=== PATIENT | male | born 1980 | race American Indian/Alaskan Native ===

== ENCOUNTER 2017-10-03 03:15 | Emergency (ER) | payer SELFPAY ==
[2017-10-03 04:52] LABS: Hematocrit 44.2 % (35.5-45.6); Hemoglobin 14.3 gm/dl (11.8-15.2); Mean Corpuscular HGB Conc 32 % (32-34); Mean Corpuscular Hemoglobin 29 pg (28-32); Mean Corpuscular Volume 89 fl (84-94); Platelet Count 246 K/mm3 (140-440); Red Blood Count 4.97 M/mm3 (3.65-5.03); Red Cell Distribution Width 13.7 % (13.2-15.2)
[2017-10-03 05:03] LABS: BUN/Creatinine Ratio 11; Blood Urea Nitrogen 8 mg/dL (9-20); Calcium 9.1 mg/dL (8.4-10.2); Hemolysis Index 10
[2017-10-03 06:57] LABS: Bacteria,Urine 1+ /HPF (Negative); Bilirubin,Urine NEG (Negative); Blood,Urine NEG (Negative); Color,Urine Yellow (Yellow); Mucus,Urine 1+ /HPF; Protein,Urine <15 mg/dL mg/dL (Negative)
[2017-10-03 07:57] LABS: Basophils % (Manual) 0 % (0.0-1.8); Eosinophils % (Manual) 0 % (0.0-4.3); Total Cells Counted 100
[2017-10-03 07:58] LABS: Anisocytosis Few; Hypochromasia Few
[2017-10-03] MEDS ORDERED: ZITHROMAX PO ONE (08:27)
[2017-10-03] MEDS ORDERED: ROCEPHIN IM ONE (08:27)
[2017-10-03] MEDS ORDERED: XYLOCAINE 1% MPF 5 mL INFILTRATI ONE (08:27)
--- NOTE | 2017-10-03 08:27 | Emergency Department Report ---
HPI - General Chief Complaint: Back Pain/Injury Time Seen by Provider: 10/03/17 07:45 - HPI HPI: This is a 36-year-old male with no problem with a history of persistent ED complaining of left-sided flank pain intermittently for the past one week. Patient states he has a history of gastritis and thinks this might be what's going on. Patient denies fevers chills, nausea, vomitting or diarrhea/abdominal pain/dysuria/penile d/c or pain. He denies chest pain or shortness of breath or any of the symptoms. ED Past Medical Hx - Past Medical History Previous Medical History?: Yes Additional medical history: Bronchitis - Surgical History Past Surgical History?: No - Social History Smoking Status: Never Smoker Substance Use Type: Alcohol - Medications Home Medications: Home Medications Medication Instructions Recorded Confirmed Last Taken Type Famotidine [Pepcid] 20 mg PO BID #20 tablet 10/03/17 Unknown Rx ED Review of Systems ROS: Stated complaint: LT FLANK PAIN Other details as noted in HPI Constitutional: denies: chills, fever Eyes: denies: eye pain, eye discharge, vision change ENT: denies: ear pain, throat pain Respiratory: denies: cough, shortness of breath, wheezing Cardiovascular: denies: chest pain, palpitations Endocrine: no symptoms reported Gastrointestinal: denies: abdominal pain, nausea, diarrhea Genitourinary: denies: urgency, dysuria, frequency, hematuria, discharge, testicular pain, testicular mass Musculoskeletal: denies: back pain, joint swelling, arthralgia Skin: denies: rash, lesions Neurological: denies: headache, weakness, paresthesias Psychiatric: denies: anxiety, depression Hematological/Lymphatic: denies: easy bleeding, easy bruising Physical Exam - Physical Exam Vital Signs: Vital Signs 10/03/17 03:50 Temperature 97.5 F L Pulse Rate 64 Respiratory 18 Rate Blood Pressure 131/105 O2 Sat by Pulse 99 Oximetry Physical Exam: GENERAL: Alert and oriented x3, no apparent distress, Normal Gait, atraumatic. MOUTH:Mouth is well hydrated and without lesions. Tonsils nonerythematous or swollen, Uvula midline, Tongue not elevated. Mucous membranes are moist. Posterior pharynx clear, no exudate or lesions. Patent airways. NECK: Supple. Non edematous, No lymphadenopathy or thyromegaly. No C-spine tenderness LUNGS: Symetrical with respiration, No wheezing, no rales or crackles, CTAB. HEART: S1, S2 present, regular rate and rhythm without murmur, no rubs, no gallops. Non tender to palpation ABDOMEN: No organomegaly was noted,Positive bowel sounds, soft, and non- distended. . Nontender to palpation on all Quadrants, NO CVA tenderness. BACK: Full range of motion, no spinal tenderness, nontender to palpation. NEUROLOGIC: The patient is cooperative with no focal neurologic deficits. ED Course Vital Signs 10/03/17 03:50 Temperature 97.5 F L Pulse Rate 64 Respiratory 18 Rate Blood Pressure 131/105 O2 Sat by Pulse 99 Oximetry ED Medical Decision Making - Lab Data Result diagrams: 10/03/17 04:31 10/03/17 04:31 Laboratory Last Values WBC 4.0 K/mm3 (4.5-11.0) L 10/03/17 04:31 RBC 4.97 M/mm3 (3.65-5.03) 10/03/17 04:31 Hgb 14.3 gm/dl (11.8-15.2) 10/03/17 04:31 Hct 44.2 % (35.5-45.6) 10/03/17 04:31 MCV 89 fl (84-94) 10/03/17 04:31 MCH 29 pg (28-32) 10/03/17 04:31 MCHC 32 % (32-34) 10/03/17 04:31 RDW 13.7 % (13.2-15.2) 10/03/17 04:31 Plt Count 246 K/mm3 (140-440) 10/03/17 04:31 Perkins % (Auto) [place] Drummer 10/03/17 04:31 Add Manual Diff Complete 10/03/17 04:31 Total Counted 100 10/03/17 04:31 Seg Neuts % (Manual) 60.0 % (40.0-70.0) 10/03/17 04:31 Band Neutrophils % 0 % 10/03/17 04:31 Lymphocytes % (Manual) 27.0 % (13.4-35.0) 10/03/17 04:31 Reactive Lymphs % (Man) 0 % 10/03/17 04:31 Monocytes % (Manual) 13.0 % (0.0-7.3) H 10/03/17 04:31 Eosinophils % (Manual) 0 % (0.0-4.3) 10/03/17 04:31 Basophils % (Manual) 0 % (0.0-1.8) 10/03/17 04:31 Metamyelocytes % 0 % 10/03/17 04:31 Myelocytes % 0 % 10/03/17 04:31 Promyelocytes % 0 % 10/03/17 04:31 Blast Cells % 0 % 10/03/17 04:31 Nucleated RBC % Not Reportable 10/03/17 04:31 Seg Neutrophils # Man 2.4 K/mm3 (1.8-7.7) 10/03/17 04:31 Band Neutrophils # 0.0 K/mm3 10/03/17 04:31 Lymphocytes # (Manual) 1.1 K/mm3 (1.2-5.4) L 10/03/17 04:31 Abs React Lymphs (Man) 0.0 K/mm3 10/03/17 04:31 Monocytes # (Manual) 0.5 K/mm3 (0.0-0.8) 10/03/17 04:31 Eosinophils # (Manual) 0.0 K/mm3 (0.0-0.4) 10/03/17 04:31 Basophils # (Manual) 0.0 K/mm3 (0.0-0.1) 10/03/17 04:31 Metamyelocytes # 0.0 K/mm3 10/03/17 04:31 Myelocytes # 0.0 K/mm3 10/03/17 04:31 Promyelocytes # 0.0 K/mm3 10/03/17 04:31 Blast Cells # 0.0 K/mm3 10/03/17 04:31 WBC Morphology Not Reportable 10/03/17 04:31 Hypersegmented Neuts Not Reportable 10/03/17 04:31 Hyposegmented Neuts Not Reportable 10/03/17 04:31 Hypogranular Neuts Not Reportable 10/03/17 04:31 Smudge Cells Not Reportable 10/03/17 04:31 Toxic Granulation Not Reportable 10/03/17 04:31 Toxic Vacuolation Not Reportable 10/03/17 04:31 Dohle Bodies Not Reportable 10/03/17 04:31 Pelger-Huet Anomaly Not Reportable 10/03/17 04:31 Andrea Rods Not Reportable 10/03/17 04:31 Platelet Estimate Appears normal 10/03/17 04:31 Clumped Platelets Not Reportable 10/03/17 04:31 Plt Clumps, EDTA Not Reportable 10/03/17 04:31 Large Platelets Not Reportable 10/03/17 04:31 Giant Platelets Not Reportable 10/03/17 04:31 Platelet Satelliting Not Reportable 10/03/17 04:31 Plt Morphology Comment Not Reportable 10/03/17 04:31 RBC Morphology Not Reportable 10/03/17 04:31 Dimorphic RBCs Not Reportable 10/03/17 04:31 Polychromasia Not Reportable 10/03/17 04:31 Hypochromasia Few 10/03/17 04:31 Poikilocytosis Not Reportable 10/03/17 04:31 Anisocytosis Few 10/03/17 04:31 Microcytosis Not Reportable 10/03/17 04:31 Macrocytosis Not Reportable 10/03/17 04:31 Spherocytes Not Reportable 10/03/17 04:31 Pappenheimer Bodies Not Reportable 10/03/17 04:31 Sickle Cells Not Reportable 10/03/17 04:31 Target Cells Not Reportable 10/03/17 04:31 Tear Drop Cells Not Reportable 10/03/17 04:31 Ovalocytes Not Reportable 10/03/17 04:31 Helmet Cells Not Reportable 10/03/17 04:31 [place] Bodies Not Reportable 10/03/17 04:31 [place] Rings Not Reportable 10/03/17 04:31 Estefania Cells Not Reportable 10/03/17 04:31 Bite Cells Not Reportable 10/03/17 04:31 Crenated Cell Not Reportable 10/03/17 04:31 Elliptocytes Not Reportable 10/03/17 04:31 Acanthocytes (Spur) Not Reportable 10/03/17 04:31 Rouleaux Not Reportable 10/03/17 04:31 Hemoglobin C Crystals Not Reportable 10/03/17 04:31 Schistocytes Not Reportable 10/03/17 04:31 Malaria parasites Not Reportable 10/03/17 04:31 Hari Bodies Not Reportable 10/03/17 04:31 Hem Pathologist Commnt No 10/03/17 04:31 Sodium 136 mmol/L (137-145) L 10/03/17 04:31 Potassium 4.2 mmol/L (3.6-5.0) 10/03/17 04:31 Chloride 95.2 mmol/L (98-107) L 10/03/17 04:31 Carbon Dioxide 29 mmol/L (22-30) 10/03/17 04:31 Anion Gap 16 mmol/L 10/03/17 04:31 BUN 8 mg/dL (9-20) L 10/03/17 04:31 Creatinine 0.7 mg/dL (0.8-1.5) L 10/03/17 04:31 Estimated GFR > 60 ml/min 10/03/17 04:31 BUN/Creatinine Ratio 11 % 10/03/17 04:31 Glucose 92 mg/dL (75-100) 10/03/17 04:31 Calcium 9.1 mg/dL (8.4-10.2) 10/03/17 04:31 Urine Color Yellow (Yellow) 10/03/17 05:17 Urine Turbidity Clear (Clear) 10/03/17 05:17 Urine pH 7.0 (5.0-7.0) 10/03/17 05:17 Ur Specific [place] 1.021 (1.003-1.030) 10/03/17 05:17 Urine Protein <15 mg/dl mg/dL (Negative) 10/03/17 05:17 Urine Glucose (UA) Neg mg/dL (Negative) 10/03/17 05:17 Urine Ketones Tr mg/dL (Negative) 10/03/17 05:17 Urine Blood Neg (Negative) 10/03/17 05:17 Urine Nitrite Neg (Negative) 10/03/17 05:17 Ur Reducing Substances Not Reportable 10/03/17 05:17 Urine Bilirubin Neg (Negative) 10/03/17 05:17 Urine Ictotest Not Reportable 10/03/17 05:17 Urine Urobilinogen 2.0 mg/dL (<2.0) 10/03/17 05:17 Ur Leukocyte Esterase Tr (Negative) 10/03/17 05:17 Urine WBC (Auto) 17.0 /HPF (0.0-6.0) H 10/03/17 05:17 Urine RBC (Auto) 2.0 /HPF (0.0-6.0) 10/03/17 05:17 U Epithel Cells (Auto) 1.0 /HPF (0-13.0) 10/03/17 05:17 Urine Bacteria (Auto) 1+ /HPF (Negative) 10/03/17 05:17 Urine Mucus 1+ /HPF 10/03/17 05:17 - Medical Decision Making 36-year-old male presents with Urethritis ED course: The patie Rocephin and Zithromycin in ed CBC, CMP, urinalysis ordered. Labs within normal limits Patient was dehydrated with mildly decreased electrolytes Urinalysis also positive for white blood count and bacteria. I discussed his labs with the patient. Patient was treated prophylaxis for asymptomatic pyelo/urethritis. Discussed the patient follow up with a primary care physician. Discussed if worsening symptoms to return to ED immediately. I discussed the patient is to hydrate more often into trying some Gatorade and plenty of water daily. Critical care attestation.: If time is entered above; I have spent that time in minutes in the direct care of this critically ill patient, excluding procedure time. ED Disposition Clinical Impression: Urethritis UTI (urinary tract infection) Qualifiers: Urinary tract infection type: acute cystitis Hematuria presence: without hematuria Qualified Code(s): N30.00 - Acute cystitis without hematuria Disposition: - TO HOME OR SELFCARE Is pt being admited?: No Does the pt Need Aspirin: No Condition: Stable Instructions: Nonspecific Urethritis in Men (ED), Urinary Tract Infection in Men (ED) Additional Instructions: Make sure to follow up with the primary care physician as discussed. Take all your medications as you've been prescribed. If you have any worsening symptoms or develop new symptoms please return to ED immediately. Prescriptions: Famotidine [Pepcid] 20 mg PO BID #20 tablet Referrals: CRISTOPHER YAN MD [Primary Care Provider] - 3-5 Days [facility] [Outside] - 3-5 Days [facility] [Outside] - 3-5 Days Forms: STI Treatment and Prevention Time of Disposition: 08:40
[2017-10-03 08:51] VITALS: BP 128/96
== END 2017-10-03 09:05 | disposition home or self-care (01) ==
LOC: ED 03:15
DX: N34.2 Other urethritis (principal)
CPT/HCPCS: 36415; 80048; 81001; 85007; 85025; 96372; 99283; J0696